=== PATIENT | female | born 1990 | race Caucasian/White ===

== ENCOUNTER 2022-06-14 03:30 | Emergency (ER) | payer MEDICARE, OTHER ==
[~2022-06-14] VITALS: Ht 147.3 cm; Wt 54.4 kg
[2022-06-14 03:36] VITALS: BP 132/90
--- NOTE | 2022-06-14 03:36 | NUR ---
PT ANTHONY DAVIS, TAKEN TO CHAIR
--- NOTE | 2022-06-14 03:48 | NUR ---
Patient being evaluated by physician
[2022-06-14] MEDS ORDERED: IBUPROFEN 600 MG TAB PO ONE (03:55)
[2022-06-14] MEDS ORDERED: IBUP-2213 PO (03:55)
--- NOTE | 2022-06-14 04:31 | NUR ---
Patient discharged with v/s stable. Written and verbal after care instructions given and explained. Patient verbalized understanding. Ambulatory with in custody. All questions addressed prior to discharge. Advised to follow up with PMD.
== END 2022-06-14 04:31 | disposition home or self-care (01) ==
LOC: MED 03:30
DX: S39.011A Strain of muscle, fascia and tendon of abdomen, initial encounter (principal); V49.88XA Car occupant (driver) (passenger) injured in other specified transport accidents, initial encounter; Y93.89 Activity, other specified; Y92.89 Other specified places as the place of occurrence of the external cause; Y99.8 Other external cause status
CPT/HCPCS: 81025; 99284